=== PATIENT | female | born 2000 | race African-American/Black ===

== ENCOUNTER → 2024-08-23 08:03 | Outpatient (CLI) | payer OTHER, SELFPAY ==
--- NOTE | 2024-08-23 08:05 | DI.ECHO.S_ITS ---
[facility] : : [address] : : [place] : : [id number] : : Phone: [phone] Echocardiogram Report + + :Name: KALLI SHEETS Study Date: 08/23/2024 Height: 71 in : :[facility] ReadingLocation: Weight: 275 lb : : Gender: Female BSA: 2.4 m2 : :: 2000 Age: 23 yrs BP: 137/83 mmHg: :Reason For Study: SYNCOPE : :Ordering Physician: TIA, : :JOSH Performed By: Nayely Singh : :Referring: JOSH WEBER : + + Interpretation Summary 1. The left ventricular contractility is normal. Estimate ejection fraction is greater than 60% with no segmental wall motion abnormalities. No LVH. Normal diastolic function. 2. The right ventricle contractility is normal. 3 all cardiac chambers are of normal size. 4. No significant valvular abnormalities. 5. No obvious intracardiac shunts. 6. No obvious intra masses nor thrombi. 7. No hemodynamically significant pericardial effusion. 8. Low right-sided filling pressures. Conclusion: Normal biventricular function with no significant valvular nor structural abnormalities. Procedure: A two-dimensional transthoracic echocardiogram with color flow and Doppler was performed. The study quality was technically adequate. There is no prior echocardiogram noted for this patient. The patient was in sinus rhythm with heart rates between 58-78 bpm during the exam. Left Ventricle: The left ventricle is normal in size and wall thickness. The ejection fraction is estimated to be 60-65%. Right Ventricle: The right ventricle is normal in size and function. Atria: The left atrial size is normal. Right atrial size is normal. There is no Doppler evidence for an interatrial shunt. Mitral Valve: The mitral valve leaflets appear normal. There is no evidence of stenosis, fluttering, or prolapse. There is mild mitral regurgitation. Aortic Valve: The aortic valve is trileaflet. The aortic valve opens well. There is no aortic valve stenosis. No aortic regurgitation is present. Tricuspid Valve: The tricuspid valve is normal in structure and function. There is trace tricuspid regurgitation. Pulmonic Valve: The pulmonic valve leaflets are thin and pliable; valve motion is normal. There is no pulmonic valvular regurgitation. Great Vessels: The aortic root is normal size. The dimensions of the ascending aorta are normal. The IVC is of normal diameter and collapses greater than 50% with a sniff. This suggests a low right atrial pressure of 3 mm Hg. Pericardium/ Pleura There is no pericardial effusion. There is no pleural effusion. MMode/2D Measurements & Calculations LVIDd: 5.8 cm LVOT diam: 2.0 cm LVIDs: 3.5 cm Ao root diam: 2.5 cm FS: 39.1 % asc Aorta Diam: 2.4 cm EPSS: 0.77 cm Ao Arch Diam (Prox Trans): 2.2 cm IVSd: 0.73 cm LVPWd: 0.70 cm LV masterson. diameter/BSA (cm/m^2): 2.4 LV sys. diameter/BSA (cm/m^2): 1.5 LA A2 area: 18.9 cm2 RA long axis: 4.6 cm LA A4 area: 15.3 cm2 RA area: 16.6 cm2 LA length (vol): 4.5 cm RA vol: 50.5 ml LA vol: 54.3 ml RA : 20.9 ml/m2 LA vol index: 22.5 ml/m2 IVC diam: 1.6 cm RVD1 (basal): 3.6 cm RVD2 (mid): 2.8 cm TAPSE: 1.9 cm Doppler Measurements & Calculations Ao V2 max: 180.3 cm/sec LVOT Max Ashkan: 108.1 cm/sec Ao V2 mean: 123.6 cm/sec LV V1 max P.7 mmHg Ao max P.0 mmHg LV V1 VTI: 22.3 cm Ao mean P.9 mmHg SEBASTIÁN(I,D): 2.1 cm2 Ao V2 VTI: 32.6 cm SEBASTIÁN(V,D): 1.9 cm2 sev ratio: 0.68 SEBASTIÁN indexed to BSA (cm^2/m^2): 0.89 MV E max ashkan: 105.5 cm/sec PA V2 max: 113.9 cm/sec MV A max ashkan: 59.5 cm/sec PA V2 mean: 81.9 cm/sec MV E/A: 1.8 PA mean P.9 mmHg Med Peak E' Ashkan: 10.8 cm/sec PA pr(Accel): 17.3 mmHg E/E' med: 9.8 Lat Peak E' Ashkan: 19.6 cm/sec E/E' lat: 5.4 E/e' average: 7.6 MV dec time: 0.19 sec SV(LVOT): 69.9 ml Reading Physician:
[2024-08-23 09:49] LABS: Add Manual Diff / Slide Review NO; Basophils Absolute Auto 100 /uL (0-100); Basophils Percent Auto 0.8 % (0-2); Eosinophils Absolute Auto 200 /uL (0-450); Eosinophils Percent Auto 2.1 % (2-4); Hematocrit 23.6 % (36-46); Hemoglobin 7.3 g/dL (12.0-16.0); Lymphocytes Absolute Auto 2500 /uL (1100-4500); Lymphocytes Percent Auto 33.1 % (25-40); Mean Corpuscular HGB Conc 30.8 % (30-36); Mean Corpuscular Hemoglobin 16.8 PG (26-34); Mean Corpuscular Volume 54.6 fL (80-100); Monocytes Absolute Auto 700 /uL (0-900); Monocytes Percent Auto 9.2 % (3-14); Neutrophils Absolute Auto 4100 /uL (1500-7000); Neutrophils Percent Auto 54.8 % (50-75); Platelet Count 419 X10^3/uL (150-400); Red Blood Cell Count 4.33 X10^6/uL (4.0-5.2); Red Cell Distribution Width 21.2 % (11.6-14.8); White Blood Cell Count 7.4 X10^3/uL (4.5-11.0)
[2024-08-23 10:10] LABS: Hypochromasia 1+; Microcytosis 3+
[2024-08-23 10:11] LABS: Anisocytosis 2+
[2024-08-23 10:18] LABS: Alanine Aminotransferase 15 IU/L (<35); Albumin 4.1 g/dL (3.5-5.0); Albumin Globulin Ratio 1.2 (1.0-2.8); Alkaline Phosphatase 141 U/L (38-126); Aspartate Aminotransferase 21 IU/L (14-36); BUN Creatinine Ratio 9.8 (6-22); Bilirubin Total 0.3 mg/dL (0.2-1.3); Blood Urea Nitrogen 8 mg/dL (7-17); Carbon Dioxide 23 mmol/L (22-32); Chloride 107 mmol/L (98-107); Estimated Glomerular Filt Rate > 60 mL/min (>60); Globulin 3.5 g/dL (1.7-4.1); Glucose 109 mg/dL (70-100); HEMOLYSIS < 15 (0-50); Potassium 4.4 mmol/L (3.4-5.1); Sodium 137 mmol/L (137-145); Total Protein 7.6 g/dL (6.3-8.2)
[2024-08-23 10:42] LABS: Appearance Urine UA CLEAR; Bilirubin Urine UA NEGATIVE (NEGATIVE); Color Urine UA YELLOW; Glucose Urine UA NEGATIVE (Negative); Ketones Urine UA NEGATIVE (NEGATIVE); Leukocyte Esterase Urine UA NEGATIVE (NEGATIVE); Nitrite Urine UA NEGATIVE (Negative); Occult Blood Urine UA 3+ (Negative); Protein Urine UA NEGATIVE (Negative); Urobilinogen Urine UA 0.2 E.U./dL (0.2)
[2024-08-23 10:44] LABS: pH Urine UA 5.5 (4.5-8.0)
[2024-08-23 10:45] LABS: Urine Volume 10mL (spun)
[2024-08-23 10:46] LABS: Bacteria Urine None Seen; RBC Urine 10-30/HPF (0-5/HPF); Squamous Epithelial Cell Urine 1-5 /HPF (0-5/HPF); WBC Urine None Seen (0-5/HPF)
== END ==
PROVIDERS: Referring Provider Chiropractor; Visit Provider Chiropractor
DX: I34.0 Nonrheumatic mitral (valve) insufficiency (principal); R55 Syncope and collapse; E11.9 Type 2 diabetes mellitus without complications; D57.1 Sickle-cell disease without crisis
CPT/HCPCS: 36415; 80053; 81001; 85025; 93306

== ENCOUNTER → 2025-10-26 12:08 | Outpatient (CLI) | payer OTHER, SELFPAY ==
[2025-10-26 12:50] LABS: Add Manual Diff / Slide Review NO; Hematocrit 33.5 % (36-46); Hemoglobin 10.4 g/dL (12.0-16.0); Lymphocytes Absolute Auto 3200 /uL (1100-4500); Mean Corpuscular HGB Conc 31.1 % (30-36); Mean Corpuscular Hemoglobin 18.7 PG (26-34); Mean Corpuscular Volume 60.2 fL (80-100); Platelet Count 348 X10^3/uL (150-400)
[2025-10-26 13:04] LABS: Hemoglobin A1C% w Est Avg Glu 5.8 % (4.0-6.0)
[2025-10-26 13:27] LABS: Microcytosis 2+
[2025-10-26 13:28] LABS: Hypochromasia 1+
[2025-10-26 13:30] LABS: Anisocytosis 2+
[2025-10-26 13:41] LABS: Alanine Aminotransferase 21 IU/L (<35); Albumin 4.4 g/dL (3.5-5.0); Albumin Globulin Ratio 1.1 (1.0-2.8); Alkaline Phosphatase 164 U/L (38-126); Blood Urea Nitrogen 11 mg/dL (7-17); Calcium 9.2 mg/dL (8.4-10.2); Carbon Dioxide 21 mmol/L (22-32); Chloride 107 mmol/L (98-107); Estimated Glomerular Filt Rate > 60 mL/min (>60); Globulin 4.1 g/dL (1.7-4.1); Glucose 119 mg/dL (70-99); HEMOLYSIS < 15 (0-50); Potassium 4.2 mmol/L (3.4-5.1); Sodium 141 mmol/L (137-145); Total Protein 8.5 g/dL (6.3-8.2)
[2025-10-26 14:10] LABS: TSH w/ Reflex to FT4 1.22 uIU/mL (0.47-4.68)
[2025-10-26 16:01] LABS: Follicle Stimulating Hormone 4.84 mIU/mL
[2025-10-26 16:16] LABS: Estradiol, Total 64.6 pg/mL
== END ==
PROVIDERS: Referring Provider Obstetrics & Gynecology; Visit Provider Obstetrics & Gynecology
DX: N91.1 Secondary amenorrhea (principal)
CPT/HCPCS: 36415; 80053; 82397; 82670; 83001; 83036; 84146; 84402; 84403; 84443; 85025